=== PATIENT | female | born 1985 | race Caucasian/White ===

== ENCOUNTER 2019-03-18 22:20 | Emergency (ER) | payer OTHER | END 2019-03-19 02:08 | disposition home or self-care (01) | LOC: E/R 22:20 | DX: E16.2 Hypoglycemia, unspecified (principal); G92 Toxic encephalopathy; T65.891A Toxic effect of other specified substances, accidental (unintentional), initial encounter | CPT/HCPCS: 82962; 99283 ==

== ENCOUNTER 2019-07-14 14:55 | Emergency (ER) | payer OTHER ==
[2019-07-14 15:54] LABS: ADD MAN DIFF? NO
[2019-07-14 15:56] LABS: WHITE BLOOD COUNT 11.2 10^3/ul (4.8-10.8)
[2019-07-14 15:56] LABS: BASOPHILS % 0.4 % (0.0-2.0); EOSINOPHILS # 0.2 10^3/ul (0.0-0.5); EOSINOPHILS % 1.7 % (0.0-7.0); HEMOGLOBIN 12.7 g/dl (12.0-16.0); LYMPHOCYTES # 4.7 10^3/ul (0.8-2.9); LYMPHOCYTES % 41.7 % (15.0-51.0); MEAN CORPUSCULAR HEMOGLOBIN 31.9 pg (29.0-33.0); MEAN CORPUSCULAR HGB CONC 33.4 g/dl (32.0-37.0); MEAN CORPUSCULAR VOLUME 95.5 fl (82.0-101.0); MEAN PLATELET VOLUME 10.6 fl (7.4-10.4); MONOCYTE # 0.9 10^3/ul (0.3-0.9); MONOCYTES % 8.4 % (0.0-11.0); NEUTROPHIL # 5.3 10^3/ul (1.6-7.5); NEUTROPHILS % 47.5 % (39.0-77.0); PLATELET COUNT 296 10^3/UL (140-415); RED BLOOD COUNT 3.98 10^6/ul (4.20-5.40); RED CELL DISTRIBUTION WIDTH 13.1 % (11.5-14.5)
[2019-07-14 16:07] LABS: ADD UMIC YES; UR ASCORBIC ACID 20 mg/dL (NEGATIVE); UR BILIRUBIN (Dip) NEGATIVE (NEGATIVE); UR BLOOD (Dip) NEGATIVE (NEGATIVE); UR CLARITY SLIGHTLY CLOUDY (CLEAR); UR COLOR YELLOW (YELLOW); UR GLUCOSE (Dip) NEGATIVE (NEGATIVE); UR KETONES (Dip) TRACE mg/dL (NEGATIVE); UR LEUKOCYTE ESTERASE (Dip) TRACE Leu/ul (NEGATIVE); UR NITRITE (Dip) NEGATIVE (NEGATIVE); UR RBC 8 /HPF (0-5); UR SPECIFIC GRAVITY (Dip) 1.023 (1.003-1.030); UR SQUAMOUS EPITHELIAL CELL MODERATE /HPF (FEW); UR TOTAL PROTEIN (Dip) NEGATIVE (NEGATIVE); UR UROBILINOGEN (Dip) NEGATIVE (NEGATIVE); UR WBC 2 /HPF (0-5)
[2019-07-14 16:21] LABS: ALANINE AMINOTRANSFERASE 10 IU/L (13-69); ALBUMIN 4.2 g/dl (3.3-4.9); ALBUMIN/GLOBULIN RATIO 1.35; ALKALINE PHOSPHATASE 54 IU/L (42-121); ANION GAP 8 (5-13); ASPARTATE AMINO TRANSFERASE 21 IU/L (15-46); BLOOD UREA NITROGEN 14 mg/dl (7-20); CARBON DIOXIDE 25 mmol/L (21-31); CHLORIDE 105 mmol/L (97-110); CREATININE 0.96 mg/dl (0.44-1.00); Estimated GFR > 60 mL/min (>60); GLUCOSE 110 mg/dl (70-220); POTASSIUM 3.7 mmol/L (3.5-5.1); SODIUM 138 mmol/L (135-144); TOTAL PROTEIN 7.3 g/dl (6.1-8.1)
[2019-07-14 16:26] LABS: ACETAMINOPHEN < 10.0 ug/ml (10.0-30.0); ETHANOL < 10.0 mg/dl (0-0); SALICYLATE < 1.0 mg/dl (5.0-30.0)
[2019-07-14 16:38] LABS: AMPHETAMINE/METHAMPHETAMINE Negative (NEGATIVE); BARBITURATES Negative (NEGATIVE); BENZODIAZEPINES Positive (NEGATIVE); CANNABINOIDS Positive (NEGATIVE); COCAINE Negative (NEGATIVE); OPIATES Negative (NEGATIVE)
== END 2019-07-14 20:34 | disposition home or self-care (01) ==
LOC: E/R 14:55
DX: T42.4X1A Poisoning by benzodiazepines, accidental (unintentional), initial encounter (principal); R40.2142 Coma scale, eyes open, spontaneous, at arrival to emergency department; R40.2362 Coma scale, best motor response, obeys commands, at arrival to emergency department; R40.2252 Coma scale, best verbal response, oriented, at arrival to emergency department; Z87.891 Personal history of nicotine dependence
CPT/HCPCS: 36415; 80053; 80307; 81001; 81025; 82962; 85025; 99283